=== PATIENT | male | born 1945 | race Caucasian/White ===

== ENCOUNTER 2017-08-03 00:17 | Day surgery (SDC) | payer MEDICARE, OTHER ==
[~2017-08-03 00:17] MED LIST: ACET325 PO; ACET500 PO; ALBIPROI INH; ASPI81CH; ASPI81CH PO; ASPI81EC PO; ATOR10 PO; AZIT250 PO; B Complete1 EACH PO; B Complex1 EAC2 PO; Bactrim 400-801 EACH PO; CELE100; CELE200 PO; CEPH500 PO; CLAR500 PO; CRUTCH2 USE; Colace100 MG PO; DOXY100 PO; DUTA.5 PO; FEXPSEER PO; FISH1000 PO; HYDACE5 PO; HYDGUAL120 PO; LEVO750 PO; MACULAR HEALTH1 EACH PO; MULVITMINF PO; NAPR500 PO; OXYACE7.5T PO; Omeprazole20 M1 PO; PRED20 PO; PROBIOTIC1 EAC3 PO; Percocet 5-3251 EACH PO; Prednisone20 MG PO; ROBITUSSIN COU237 ML PO; ROSU10TA; ROSU10TA PO; Rapaflo8 MG PO; SULTRIDS PO; Super B Comple150 MG PO; TAMS.4ER PO; TIOT18; TIOT18 IH; TIOT18 INH; TRIM100 PO; VIT D PO; VITAMIN D34000 UNIT PO; VITAMIN D5000 UNIT PO; Vitamin D2000 UNIT PO; ZOLP5 PO; Zofran Odt4 MG SL; Zofran Odt8 MG PO
[2018-05-23] MEDS ORDERED: Omeprazole20 M1 PO (17:34)
[2018-05-23] MEDS ORDERED: MEGE40T PO (17:36)
[2018-05-23] MEDS ORDERED: ALBU90OI INH (19:59)
[2018-05-23] MEDS ORDERED: PRED20 PO (19:59)
[2018-06-23] MEDS ORDERED: FURO40 PO (18:45)
[2018-06-23] MEDS ORDERED: TRAM50 PO (18:46)
[2018-06-26] MEDS ORDERED: LORA1 PO (11:52)
[2018-06-26] MEDS ORDERED: NYST100000 PO (11:53)
[2018-06-26] MEDS ORDERED: MORP20L PO (11:54)
[2018-06-26] MEDS ORDERED: ATROPINE 0.01%-10 ML PO (11:56)
[2018-06-26] MEDS ORDERED: Xylocaine 2% In20 ML PO (11:59)
== END 2017-08-03 15:21 | disposition home or self-care (01) ==
LOC: ATC 00:17
DX: C20 Malignant neoplasm of rectum (principal)
CPT/HCPCS: 96360; J1642; J7030

== ENCOUNTER 2017-08-07 00:24 | Day surgery (SDC) | payer MEDICARE, OTHER ==
[2018-05-23] MEDS ORDERED: Omeprazole20 M1 PO (17:34)
[2018-05-23] MEDS ORDERED: MEGE40T PO (17:36)
[2018-05-23] MEDS ORDERED: PRED20 PO (19:59)
[2018-05-23] MEDS ORDERED: ALBU90OI INH (19:59)
[2018-06-23] MEDS ORDERED: FURO40 PO (18:45)
[2018-06-23] MEDS ORDERED: TRAM50 PO (18:46)
[2018-06-26] MEDS ORDERED: LORA1 PO (11:52)
[2018-06-26] MEDS ORDERED: NYST100000 PO (11:53)
[2018-06-26] MEDS ORDERED: MORP20L PO (11:54)
[2018-06-26] MEDS ORDERED: ATROPINE 0.01%-10 ML PO (11:56)
[2018-06-26] MEDS ORDERED: Xylocaine 2% In20 ML PO (11:59)
== END 2017-08-07 14:58 | disposition home or self-care (01) ==
LOC: ATC 00:24
DX: C20 Malignant neoplasm of rectum (principal)
CPT/HCPCS: 96523; J1642; J7030

== ENCOUNTER 2017-08-17 00:47 | Day surgery (SDC) | payer MEDICARE ==
[2017-08-17] MEDS ORDERED: IRON PO (14:16)
[2018-05-23] MEDS ORDERED: Omeprazole20 M1 PO (17:34)
[2018-05-23] MEDS ORDERED: MEGE40T PO (17:36)
[2018-05-23] MEDS ORDERED: PRED20 PO (19:59)
[2018-05-23] MEDS ORDERED: ALBU90OI INH (19:59)
[2018-06-23] MEDS ORDERED: FURO40 PO (18:45)
[2018-06-23] MEDS ORDERED: TRAM50 PO (18:46)
[2018-06-26] MEDS ORDERED: LORA1 PO (11:52)
[2018-06-26] MEDS ORDERED: NYST100000 PO (11:53)
[2018-06-26] MEDS ORDERED: MORP20L PO (11:54)
[2018-06-26] MEDS ORDERED: ATROPINE 0.01%-10 ML PO (11:56)
[2018-06-26] MEDS ORDERED: Xylocaine 2% In20 ML PO (11:59)
== END 2017-08-17 15:46 | disposition home or self-care (01) ==
LOC: ATC 00:47
DX: C20 Malignant neoplasm of rectum (principal); F17.200 Nicotine dependence, unspecified, uncomplicated; R94.2 Abnormal results of pulmonary function studies; J44.9 Chronic obstructive pulmonary disease, unspecified; I10 Essential (primary) hypertension; E78.5 Hyperlipidemia, unspecified
CPT/HCPCS: 96360; J1642; J7030

== ENCOUNTER 2017-08-28 00:33 | Day surgery (SDC) | payer MEDICARE, OTHER ==
[~2017-08-28 00:33] MED LIST changes: +IRON PO
[2018-05-23] MEDS ORDERED: Omeprazole20 M1 PO (17:34)
[2018-05-23] MEDS ORDERED: MEGE40T PO (17:36)
[2018-05-23] MEDS ORDERED: ALBU90OI INH (19:59)
[2018-05-23] MEDS ORDERED: PRED20 PO (19:59)
[2018-06-23] MEDS ORDERED: FURO40 PO (18:45)
[2018-06-23] MEDS ORDERED: TRAM50 PO (18:46)
[2018-06-26] MEDS ORDERED: LORA1 PO (11:52)
[2018-06-26] MEDS ORDERED: NYST100000 PO (11:53)
[2018-06-26] MEDS ORDERED: MORP20L PO (11:54)
[2018-06-26] MEDS ORDERED: ATROPINE 0.01%-10 ML PO (11:56)
[2018-06-26] MEDS ORDERED: Xylocaine 2% In20 ML PO (11:59)
== END 2017-08-28 16:53 | disposition home or self-care (01) ==
LOC: ATC 00:33
DX: Z45.1 Encounter for adjustment and management of infusion pump (principal); C20 Malignant neoplasm of rectum
CPT/HCPCS: 96523; J1642

== ENCOUNTER 2017-09-08 00:19 | Day surgery (SDC) | payer MEDICARE, OTHER ==
[2018-05-23] MEDS ORDERED: Omeprazole20 M1 PO (17:34)
[2018-05-23] MEDS ORDERED: MEGE40T PO (17:36)
[2018-05-23] MEDS ORDERED: ALBU90OI INH (19:59)
[2018-05-23] MEDS ORDERED: PRED20 PO (19:59)
[2018-06-23] MEDS ORDERED: FURO40 PO (18:45)
[2018-06-23] MEDS ORDERED: TRAM50 PO (18:46)
[2018-06-26] MEDS ORDERED: LORA1 PO (11:52)
[2018-06-26] MEDS ORDERED: NYST100000 PO (11:53)
[2018-06-26] MEDS ORDERED: MORP20L PO (11:54)
[2018-06-26] MEDS ORDERED: ATROPINE 0.01%-10 ML PO (11:56)
[2018-06-26] MEDS ORDERED: Xylocaine 2% In20 ML PO (11:59)
== END 2017-09-08 16:13 | disposition home or self-care (01) ==
LOC: ATC 00:19
DX: C20 Malignant neoplasm of rectum (principal)
CPT/HCPCS: 96360; J1642; J7030

== ENCOUNTER 2017-09-18 | Day surgery (SDC) | END 2017-09-18 15:15 | disposition home or self-care (01) ==

== ENCOUNTER 2017-09-28 00:10 | Day surgery (SDC) | payer MEDICARE, OTHER ==
[2017-09-28] MEDS ORDERED: AZIT250 PO (14:06)
[2018-05-23] MEDS ORDERED: Omeprazole20 M1 PO (17:34)
[2018-05-23] MEDS ORDERED: MEGE40T PO (17:36)
[2018-05-23] MEDS ORDERED: ALBU90OI INH (19:59)
[2018-05-23] MEDS ORDERED: PRED20 PO (19:59)
[2018-06-23] MEDS ORDERED: FURO40 PO (18:45)
[2018-06-23] MEDS ORDERED: TRAM50 PO (18:46)
[2018-06-26] MEDS ORDERED: LORA1 PO (11:52)
[2018-06-26] MEDS ORDERED: NYST100000 PO (11:53)
[2018-06-26] MEDS ORDERED: MORP20L PO (11:54)
[2018-06-26] MEDS ORDERED: ATROPINE 0.01%-10 ML PO (11:56)
[2018-06-26] MEDS ORDERED: Xylocaine 2% In20 ML PO (11:59)
== END 2017-09-28 15:47 | disposition home or self-care (01) ==
LOC: ATC 00:10
DX: C20 Malignant neoplasm of rectum (principal); F17.200 Nicotine dependence, unspecified, uncomplicated; R94.2 Abnormal results of pulmonary function studies; R91.8 Other nonspecific abnormal finding of lung field; E78.5 Hyperlipidemia, unspecified; I10 Essential (primary) hypertension
CPT/HCPCS: 96360; J1642; J7030

== ENCOUNTER 2017-10-09 01:13 | Day surgery (SDC) | payer MEDICARE, OTHER ==
[2018-05-23] MEDS ORDERED: Omeprazole20 M1 PO (17:34)
[2018-05-23] MEDS ORDERED: MEGE40T PO (17:36)
[2018-05-23] MEDS ORDERED: PRED20 PO (19:59)
[2018-05-23] MEDS ORDERED: ALBU90OI INH (19:59)
[2018-06-23] MEDS ORDERED: FURO40 PO (18:45)
[2018-06-23] MEDS ORDERED: TRAM50 PO (18:46)
[2018-06-26] MEDS ORDERED: LORA1 PO (11:52)
[2018-06-26] MEDS ORDERED: NYST100000 PO (11:53)
[2018-06-26] MEDS ORDERED: MORP20L PO (11:54)
[2018-06-26] MEDS ORDERED: ATROPINE 0.01%-10 ML PO (11:56)
[2018-06-26] MEDS ORDERED: Xylocaine 2% In20 ML PO (11:59)
== END 2017-10-09 15:16 | disposition home or self-care (01) ==
LOC: ATC 01:13
DX: C20 Malignant neoplasm of rectum (principal); J44.9 Chronic obstructive pulmonary disease, unspecified; F17.200 Nicotine dependence, unspecified, uncomplicated; E78.5 Hyperlipidemia, unspecified; I10 Essential (primary) hypertension
CPT/HCPCS: 96523; J1642

== ENCOUNTER 2017-10-13 00:46 | Day surgery (SDC) | payer MEDICARE, OTHER ==
[2018-05-23] MEDS ORDERED: Omeprazole20 M1 PO (17:34)
[2018-05-23] MEDS ORDERED: MEGE40T PO (17:36)
[2018-05-23] MEDS ORDERED: ALBU90OI INH (19:59)
[2018-05-23] MEDS ORDERED: PRED20 PO (19:59)
[2018-06-23] MEDS ORDERED: FURO40 PO (18:45)
[2018-06-23] MEDS ORDERED: TRAM50 PO (18:46)
[2018-06-26] MEDS ORDERED: LORA1 PO (11:52)
[2018-06-26] MEDS ORDERED: NYST100000 PO (11:53)
[2018-06-26] MEDS ORDERED: MORP20L PO (11:54)
[2018-06-26] MEDS ORDERED: ATROPINE 0.01%-10 ML PO (11:56)
[2018-06-26] MEDS ORDERED: Xylocaine 2% In20 ML PO (11:59)
== END 2017-10-13 12:22 | disposition home or self-care (01) ==
LOC: ATC 00:46
DX: C20 Malignant neoplasm of rectum (principal)
CPT/HCPCS: 96360; J1642; J7030

== ENCOUNTER 2017-10-31 02:07 | Day surgery (SDC) | payer MEDICARE, OTHER | END 2017-10-31 15:19 | disposition home or self-care (01) | LOC: ATC 02:07 | DX: C20 Malignant neoplasm of rectum (principal); N13.30 Unspecified hydronephrosis; Z72.0 Tobacco use; G62.9 Polyneuropathy, unspecified | CPT/HCPCS: 96523; J1642 ==

== ENCOUNTER 2017-11-11 00:28 | Day surgery (SDC) | payer MEDICARE, OTHER | END 2017-11-11 17:15 | disposition home or self-care (01) | LOC: ATC 00:28 | DX: C20 Malignant neoplasm of rectum (principal); G62.9 Polyneuropathy, unspecified | CPT/HCPCS: 96360; 96361; J1642; J7030 ==

== ENCOUNTER 2017-12-09 11:08 | Day surgery (SDC) | payer MEDICARE, OTHER | END 2017-12-09 16:15 | disposition home or self-care (01) | LOC: ATC 11:08 | DX: C20 Malignant neoplasm of rectum (principal); N13.30 Unspecified hydronephrosis; I10 Essential (primary) hypertension; E78.5 Hyperlipidemia, unspecified; J44.9 Chronic obstructive pulmonary disease, unspecified | CPT/HCPCS: 96360; 96361; J1642; J7030 ==

== ENCOUNTER 2017-12-31 00:32 | Day surgery (SDC) | payer MEDICARE, OTHER | END 2017-12-31 14:35 | disposition home or self-care (01) | LOC: ATC 00:32 | DX: C20 Malignant neoplasm of rectum (principal); F17.200 Nicotine dependence, unspecified, uncomplicated; J44.9 Chronic obstructive pulmonary disease, unspecified; E78.5 Hyperlipidemia, unspecified; I10 Essential (primary) hypertension | CPT/HCPCS: 96523; J1642 ==

== ENCOUNTER 2018-01-03 14:41 | Day surgery (SDC) | payer MEDICARE, OTHER | END 2018-01-03 16:13 | disposition home or self-care (01) | LOC: ATC 14:41 | DX: C20 Malignant neoplasm of rectum (principal); F17.200 Nicotine dependence, unspecified, uncomplicated; R94.2 Abnormal results of pulmonary function studies; J44.9 Chronic obstructive pulmonary disease, unspecified; R91.8 Other nonspecific abnormal finding of lung field; E78.5 Hyperlipidemia, unspecified; I10 Essential (primary) hypertension | CPT/HCPCS: 96360; J1642; J7030 ==

== ENCOUNTER 2018-01-14 00:14 | Day surgery (SDC) | payer MEDICARE, OTHER | END 2018-01-14 15:14 | disposition home or self-care (01) | LOC: ATC 00:14 | DX: C20 Malignant neoplasm of rectum (principal) | CPT/HCPCS: 96523; J1642 ==

== ENCOUNTER 2018-01-21 00:15 | Day surgery (SDC) | payer MEDICARE, OTHER | END 2018-01-21 15:30 | disposition home or self-care (01) | LOC: ATC 00:15 | DX: C20 Malignant neoplasm of rectum (principal); F17.200 Nicotine dependence, unspecified, uncomplicated; R94.2 Abnormal results of pulmonary function studies; J44.9 Chronic obstructive pulmonary disease, unspecified | CPT/HCPCS: 96360; J1642; J7030 ==

== ENCOUNTER 2018-01-25 00:22 | Day surgery (SDC) | payer MEDICARE, OTHER | END 2018-01-25 15:20 | disposition home or self-care (01) | LOC: ATC 00:22 | DX: C20 Malignant neoplasm of rectum (principal); J44.9 Chronic obstructive pulmonary disease, unspecified; I10 Essential (primary) hypertension; E78.5 Hyperlipidemia, unspecified | CPT/HCPCS: 96360; J1642; J7030 ==

== ENCOUNTER 2018-02-22 00:19 | Day surgery (SDC) | payer MEDICARE, OTHER | END 2018-02-22 15:19 | disposition home or self-care (01) | LOC: ATC 00:19 | DX: C20 Malignant neoplasm of rectum (principal) | CPT/HCPCS: 96360; J1642; J7030 ==

== ENCOUNTER 2018-03-29 00:06 | Day surgery (SDC) | payer MEDICARE, OTHER | END 2018-03-29 15:22 | disposition home or self-care (01) | LOC: ATC 00:06 | DX: E86.0 Dehydration (principal); C20 Malignant neoplasm of rectum; F17.200 Nicotine dependence, unspecified, uncomplicated; Z79.899 Other long term (current) drug therapy | CPT/HCPCS: 96360; J1642; J7030 ==

== ENCOUNTER 2018-04-23 00:34 | Day surgery (SDC) | payer MEDICARE, OTHER | END 2018-04-23 15:40 | disposition home or self-care (01) | LOC: ATC 00:34 | DX: E86.0 Dehydration (principal); C20 Malignant neoplasm of rectum | CPT/HCPCS: 96360; J1642; J7030 ==

== ENCOUNTER 2018-04-26 17:41 | Emergency (ER) | payer MEDICARE, OTHER ==
[~2018-04-26] VITALS: Ht 175.3 cm; Wt 52.2 kg
[2018-04-26 18:42] LABS: BASOPHILS ABSOLUTE AUTO 0.06 K/mm3 (0.00-0.23); BASOPHILS PERCENT AUTO 1 % (0-2); EOSINOPHILS PERCENT AUTO 2 % (0-6); IMMATURE GRAN ABSOLUTE AUTO 0.33 K/mm3 (0.00-0.10); IMMATURE GRAN PERCENT AUTO 3 % (0-1); LYMPHOCYTES ABSOLUTE AUTO 2.15 K/mm3 (0.84-5.20); LYMPHOCYTES PERCENT AUTO 16 % (21-46); MONOCYTES ABSOLUTE AUTO 0.71 K/mm3 (0.16-1.47); MONOCYTES PERCENT AUTO 5 % (4-13); Mean Corpuscular HGB 29.8 pg (26.0-34.0); Mean Corpuscular HGB Conc 31.6 g/dL (31.5-36.5); Mean Corpuscular Volume 94 fL (80-100); Mean Platelet Volume 8.1 fL (9.1-12.4); NEUTROPHILS ABSOLUTE AUTO 9.78 K/mm3 (1.96-9.15); NEUTROPHILS PERCENT AUTO 74 % (41-73); Platelet Count 434 K/mm3 (150-400); RDW Coefficient Variation 16.2 % (11.7-14.2); RDW Standard Deviation 56.4 fL (35.1-46.3); Red Blood Cell Count 4.03 M/mm3 (4.30-5.90); White Blood Cell Count 13.23 K/mm3 (4.00-11.30)
[2018-04-26 19:15] LABS: Alanine Aminotransfer (ALT/SGP 29 U/L (12-78); Albumin, Blood 2.6 g/dL (3.4-5.0); Albumin/Globulin Ratio 0.5 (0.8-1.8); Alk Phos 142 U/L (50-136); Anion Gap 6 mmol/L (6-16); Aspartate Aminotrans (AST/SGOT 58 U/L (12-37); Bilirubin, Total 0.5 mg/dL (0.1-1.0); Blood Urea Nitrogen 16 mg/dL (8-24); Bun/Creatinine Ratio 19.8 (12.0-20.0); CO2, Blood 25 mmol/L (21-32); Calcium, Blood 9.7 mg/dL (8.5-10.1); Chloride, Blood 106 mmol/L (98-108); Creatinine, Blood 0.81 mg/dL (0.60-1.20); Globulin, Blood 5.2 g/dL (2.2-4.0); Glomerular Filtration Rate >60 (60-); Glucose, Blood 83 mg/dL (70-99); Potassium, Blood 4.8 mmol/L (3.5-5.5); Sodium, Blood 137 mmol/L (136-145); Total Protein, Blood 7.8 g/dL (6.4-8.2)
[2018-04-26 19:19] LABS: Source, Urine Clean Catch
[2018-04-26 19:30] LABS: Bilirubin, Urine Neg (Neg); Blood, Urine 3+ (Neg); Glucose Qualitative, Urine Neg (Neg); Ketones, Urine Neg (Neg); Leukocyte Esterase, Urine 3+ (Neg); Nitrite, Urine Pos (Neg); Protein, Urine 1+ (Neg); Specific Gravity, Urine 1.025 (1.003-1.022); Urobilinogen, Urine 1+ (Normal)
[2018-04-26 19:56] LABS: Color, Urine Yellow (P-Yellow)
[2018-04-26 19:57] LABS: Appearance, Urine Cloudy (Clear)
[2018-04-26 19:58] LABS: Bacteria Few /hpf; White Blood Cells, Urine 50-100 /hpf (0-5)
[2018-04-26 19:59] LABS: Squamous Epithelial Cells Not Seen /hpf (Few)
[2018-04-26 20:00] LABS: Calcium Oxalate Crystals Many /hpf
[2018-04-26] MEDS ORDERED: Amoxicillin500 M1 PO (21:49)
== END 2018-04-26 22:00 | disposition home or self-care (01) ==
LOC: ER 17:41
PROVIDERS: Emergency Medicine
DX: N39.0 Urinary tract infection, site not specified (principal); C18.9 Malignant neoplasm of colon, unspecified; K76.9 Liver disease, unspecified; F17.210 Nicotine dependence, cigarettes, uncomplicated; Z79.899 Other long term (current) drug therapy
CPT/HCPCS: 36415; 74177; 80053; 81001; 83690; 85025; 87086; 93005; 93010; 96361; 96365; 96375; 99284-25; J0696; J2405; J3010; J7030; J7120; Q9967